=== PATIENT | male | born 1935 | race Caucasian/White ===

== ENCOUNTER 2016-06-10 12:30 | Emergency (ER) | payer MEDICARE, OTHER ==
[2016-06-10 12:41] VITALS: BMI 24.0
[2016-06-10 12:42] VITALS: TEMP 97.8
[2016-06-10] MEDS ORDERED: SODIUM CHLORIDE 0.9% 10 ML FLUSH FLUSH PRN (12:58)
[2016-06-10] MEDS ORDERED: ONDANSETRON HCL 4 MG/2 ML VIAL IV ONE (12:59)
--- NOTE | 2016-06-10 13:17 | EDPRACDOC ---
- General Information Chief Complaint: Nausea,Vomiting,Diarrhea Stated Complaint: VOMITING Time Seen by Provider: 06/10/16 12:49 Information Source: Patient, Family Home Medications: Home Medications Clopidogrel Bisulfate [Plavix] 37.5 mg PO DAILY 05/18/14 Cyanocobalamin (Vitamin B-12) [Vitamin B-12] 1,000 mcg PO DAILY 05/18/14 Nitroglycerin [Nitrostat] 0.4 mg SL [id number] PRN 05/18/14 Ranitidine HCl [Zantac] 150 mg PO BID 05/18/14 Sitagliptin Phosphate [Januvia] 50 mg PO DAILY(CHELSEA) 05/18/14 Atorvastatin [Lipitor 20 mg Tablet] 40 mg PO HS 07/07/14 Aspirin [Ecotrin] 81 mg PO DAILY 10/14/15 Meclizine HCl [Antivert] 25 mg PO Q8H PRN #20 tab 10/15/15 Ondansetron HCl [Zofran] 4 mg PO Q8H PRN #15 tab 10/15/15 Metformin HCl [Metformin HCl ER] 325 mg PO BID 05/31/16 Metoprolol Succinate (XL) [Toprol Xl] 12.5 mg PO BID 06/05/16 Amlodipine 5mg See Comments D/C Med 5 mg PO .SEE COMMENTS D/C ME 06/10/16 Memantine HCl/Donepezil HCl [Namzaric 7 mg-10 mg Capsule] 1 each PO . DIR 10/20 Metoclopramide HCl [Reglan] 10 mg PO ACHS #120 tab 06/10/16 Allergies/Adverse Reactions: Allergies Allergy/AdvReac Type Severity Reaction Status Date / Time No Known Allergies Allergy Verified 06/10/16 12:40 - History of Present Illness Onset: SAT HPI: PT PRESENTS TODAY WITH N/V X 5 DAYS. PT AND PTS POOR HISTORIANS, SO HPI/ ROS/PMH VERY DIFFICULT. REPORTEDLY PT WAS RECENTLY PLACED ON ANTIBIOTICS FOR PNA, WHICH WAS FINISHED 5 DAYS AGO. AFTER COMPLETING THE MEDICATION, PT BEGAN TO HAVE INTERMITTENT VOMITING. NO REPORTED VOMITING TODAY, BUT SEVERE NAUSEA. WAS SEEN BY PCP 2 DAYS AGO FOR SAME, BUT STATES "HE DIDN'T REALLY TELL US ANYTHING OR SEEMED CONCERNED". PT C/O SHOB WELL. DENIES FEVER, CP, ABD PAIN, DIARRHEA, DYSURIA. 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 Denies: Depression, Substance Use Disorder Systemic History: Reports: Cancer (SKIN), Diabetes Surgical History: Reports: Cholecystectomy, CABG (7 vessels (1990)), Angioplasty , Cardiac Catheterization (stents may 2012), Tonsillectomy/Adnoidectomy, Other ( Prostate surgery, nasal surgery.) - Family Medical History Reports: Cancer (BROTHER), Stroke (BROTHER), Cardiac Disorders (MOTHER) - Social Medical History Smoking Status: Former smoker Social History: Denies: Substance Use Disorder EDM Review of Systems - Review of Systems ROS Negative Except as Marked: Yes All systems reviewed and were negative except as marked Constitutional: Fatigue, Loss of Appetite, Weakness Eyes: No Symptoms Reported Ears: No Symptoms Reported Throat: No Symptoms Reported Nose: No Symptoms Reported Respiratory: Cough, Shortness of Breath Cardiovascular: No Symptoms Reported Gastrointestinal: Nausea, Vomiting Genitourinary: No Symptoms Reported Neurological: Dizziness, Weakness Musculoskeletal: No Symptoms Reported Integumentary: No Symptoms Reported - Physical Exam Constitutional: Alert (Awake), No apparent distress Oriented to: Time, Person, Place Last recorded Vital Signs: Last Vital Signs Temp 97.8 F 06/10/16 12:40 Pulse 86 06/10/16 12:40 Resp 20 06/10/16 12:40 BP 198/91 H 06/10/16 12:40 Pulse Ox 96 06/10/16 12:40 Oxygen Pulse Oxygen Saturation 96 O2 Device Oxygen Flow Rate Fraction of Inspired Oxygen ( FIO2) - HEENT Head: Normal Eye Exam: Normal (PERRL; EOMI; RED REFLEX NOTED; PINK CONJUNCTIVA) Oropharynx: Normal (MOIST, NO SIGNS OF DEHYDRATION) Tympanic Membrane: Normal ENT EAC: Normal Nose: No Symptoms Reported Neck: Normal, Denies Pain, Midline - Respiratory/Cardiovascular Respiratory: Normal - CTA Cardiovascular: Normal - GI Palpation: Normal Tenderness: Non tender - Musculoskeletal Back: Normal Extremities: Normal - Integumentary Skin: Normal Lymphatics: Normal - Neurologic Cerebellar: Normal Mood Description: Normal Thought: Coherent Perception: Normal - Re-evaluation Re-evaluation 1 Re-evaluation Time: 16:08 PT RESTING. NO VOMITING WHILE HERE. CASE DISCUSSED WITH DR. GONZALEZ. PT IS NOT ABLE TO TAKE METFORMIN NOW D/T CT SCAN. WILL ORDER LEVIMIR PEN HERE AND BEGIN TOMORROW. VOMITING MAY BE D/T BLOOD SUGARS NOT BEING CONTROLLED. EDUCATED PT ABOUT THIS AND APPROPRIATE FOLLOW UP. 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 FOLLOW UP WITH PCP REGARDING HIGH BLOOD SUGARS. STOP EATING CARBOHYDRATES!!
--- NOTE | 2016-06-10 13:22 | DIRPT ---
CLINICAL DATA: Chest pain and weakness EXAM: PORTABLE CHEST 1 VIEW COMPARISON: 05/31/2016 FINDINGS: Chronic hyperinflation suggesting COPD. Normal heart size and stable aortic tortuosity. Patient is status post CABG. There is no edema, consolidation, effusion, or pneumothorax. IMPRESSION: Stable. No evidence of active disease. Electronically Signed By: Blayne Park M.D. On: 06/10/2016 13:20
[2016-06-10 13:45] LABS: MPV 11.2 fL (7.4-10.4)
[2016-06-10 13:55] LABS: BLOOD UREA NITROGEN 25 MG/DL (9-20); CALC CORRECTED 9.8 MG/DL (8.4-10.2); CALCIUM 9.4 MG/DL (8.4-10.2); CALCULATED OSMOLALITY 276 MOs/Kg (270-290); CHLORIDE 95 mEq/L (98-107); GLUCOSE 394 MG/DL (70-99); SODIUM LEVEL 133 mEq/L (137-146); TOTAL PROTEIN 6.5 G/DL (6.3-8.2)
[2016-06-10 13:56] LABS: PARTIAL THROMB. TIME 26.5 SEC (22-35); PT-INR 1.2
[2016-06-10 14:19] LABS: SEG NEUTROPHIL 88 % (45-76)
[2016-06-10] MEDS: NS 1,000 ML IV SCH ×2 (14:53→15:57)
[2016-06-10] MEDS ORDERED: REGULAR INSULIN 100 UNITS/ML - 3 ML VIAL IV ONE (15:00)
[2016-06-10] MEDS ORDERED: Pharmacy Review for Metformin - IV Contrast Given SCH (15:00)
[2016-06-10 15:02] LABS: LEUKOCYTES/URINE NEG (NEGATIVE); NITRITE/URINE NEG (NEGATIVE); RBC/URINE 0-2 (0-2); URINE OCCULT BLOOD NEG (NEG/TRACE); WBC/URINE 0-2 (0-2)
[2016-06-10 15:26] LABS: ALLEN'S TEST PASS
[2016-06-10 15:27] LABS: ABG Draw Site Right Radial
--- NOTE | 2016-06-10 15:49 | DIRPT ---
CLINICAL DATA: Diffuse abdomen pain for 5 days EXAM: CT ABDOMEN AND PELVIS WITH CONTRAST TECHNIQUE: Multidetector CT imaging of the abdomen and pelvis was performed using the standard protocol following bolus administration of intravenous contrast. CONTRAST: 100 mL Isovue 370 COMPARISON: May 31, 2016 FINDINGS: No focal liver lesion is identified. Patient status post prior cholecystectomy with probable mild intrahepatic biliary ductal dilatation. There is small amount of ascites surrounding the spleen. The pancreas, adrenal glands are normal. There are bilateral kidney cysts with scarring. There is no hydronephrosis bilaterally. Heavy atherosclerosis of the abdominal aorta is identified without aneurysmal dilatation. There is no abdominal lymphadenopathy. There is no small bowel obstruction or diverticulitis. The appendix is not seen but no inflammation is noted around cecum. Partial fluid-filled bladder is normal. Small amount of free fluid is identified in the pelvis. Bilateral inguinal hernias are noted. There is right hydrocele in the scrotum. There is dependent atelectasis of the posterior lung bases with small bilateral pleural effusions. Degenerative joint changes of the spine are noted. IMPRESSION: No acute abnormality identified in the abdomen and pelvis. Small amount of ascites in the abdomen and pelvis and small bilateral pleural effusions. Electronically Signed By: Fly Herrera M.D. On: 06/10/2016 15:46
[2016-06-10 15:58] VITALS: PULSE 69
[2016-06-10] MEDS ORDERED: INSULIN DETEMIR 100 UNITS/ML PEN SQ ONE (16:07)
[2016-06-10 16:56] VITALS: BP 175/73
[2016-06-10] MEDS ORDERED: INSULIN DETEMIR 100 UNITS/ML PEN SQ SCH (17:00)
== END 2016-06-10 16:54 | disposition home or self-care (01) ==
LOC: ED 12:30
DX: R11.2 Nausea with vomiting, unspecified (principal); E11.9 Type 2 diabetes mellitus without complications; G30.9 Alzheimer's disease, unspecified; F02.80 Dementia in other diseases classified elsewhere, unspecified severity, without behavioral disturbance, psychotic disturbance, mood disturbance, and anxiety; I25.10 Atherosclerotic heart disease of native coronary artery without angina pectoris; I10 Essential (primary) hypertension; I50.9 Heart failure, unspecified; E78.00 Pure hypercholesterolemia, unspecified; K21.9 Gastro-esophageal reflux disease without esophagitis; N40.0 Benign prostatic hyperplasia without lower urinary tract symptoms; J45.909 Unspecified asthma, uncomplicated; J44.9 Chronic obstructive pulmonary disease, unspecified; F41.9 Anxiety disorder, unspecified
CPT/HCPCS: 36415; 36600; 71010; 74177; 80053; 81001; 82803; 82962; 83605; 84484; 85007; 85027; 85610; 85730; 87040; 87086; 93005; 96361; 96372; 96374; 96375; 99285; A9270; A9698; J2405; J3490